=== PATIENT | female | born 1975 | race Caucasian/White ===

== ENCOUNTER → 2021-06-22 | Outpatient (CLI) | payer OTHER ==
--- NOTE | 2021-06-22 14:25 | KCIC ---
EXAM: Lumbar spine MRI without contrast. HISTORY: Pain. TECHNIQUE: Multiplanar, multisequence magnetic resonance imaging of the lumbar spine was performed wi thout contrast. COMPARISON: None. FINDINGS: There is mild lumbar scoliosis. There is 3 mm grade 1 anterolisthesis of L4 on L5. There is degenerative endplate remodeling and disc desiccation primarily at L5-S1 and T11-T12. There are smal l osseous hemangiomas. There is no suspicious osseous lesion. There is no acute or subacute fracture. The conus terminates at L1. At T11-T12, there is a right paracentral disc protrusion with 5 and minimal superior extrusion. This deforms the right ventral aspect of the spinal cord and contributes to minimal central canal stenosis . There is mild bilateral facet arthropathy. At T12-L1, L1-L2 and L2-L3, there is no stenosis. At L3-L4, there is a left extraforaminal to lateral disc protrusion and annular tear superimposed on a disc bulge. There is mild central canal stenosis. At L4-L5, there is a right extraforaminal to lateral disc protrusion and annular tear superimposed on a disc bulge. There is mild right and moderate left facet arthropathy. There is hypertrophy of the l igamentum flavum. There is grade 1 anterolisthesis. There is mild to moderate central canal stenosis. At L5-S1, there is a broad-based posterior central to right lateral recess disc protrusion an there i s a left extraforaminal to lateral disc osteophyte complex superimposed on a disc bulge and endplate remodeling. There is mild right and moderate left facet arthropathy. There is mild retrolisthesis. Th ere is mild effacement of the bilateral lateral recesses and abutment the traversing bilateral S1 ner ve roots. IMPRESSION: Multilevel degenerative change involving the lumbar spine, described in detail above. Thi s results in mild central canal stenosis at L3-L4, mild to moderate central canal stenosis at L4-L5 a nd effacement of the lateral recesses and abutment the traversing S1 nerve roots at L5-S1. Electronically signed by: Sol No MD (06/22/2021 2:22 PM) [id number]
== END ==
LOC: KCIC MRI 13:11
PROVIDERS: ATTEND Family Medicine
DX: M47.817 Spondylosis without myelopathy or radiculopathy, lumbosacral region (principal); M51.27 Other intervertebral disc displacement, lumbosacral region; M48.061 Spinal stenosis, lumbar region without neurogenic claudication; M25.78 Osteophyte, vertebrae
CPT/HCPCS: 72148